=== PATIENT | male | born 1970 ===

== ENCOUNTER 2023-10-10 16:02 | Inpatient (IN) | payer OTHER ==
[~2023-10-10] VITALS: Ht 175.3 cm; Wt 92.0 kg
[2023-10-10 18:57] LABS: BASOPHILS % (AUTO) 1.5 % (0.0-2.0); EOSINOPHILS % (AUTO) 2.4 % (1.0-6.0); HEMATOCRIT 38.5 % (41-53); HEMOGLOBIN 12.7 g/dL (13.5-17.5); LYMPHOCYTES % (AUTO) 29.1 % (22.0-44.0); MEAN CORPUSCULAR HEMOGLOBIN 30.5 pg (26.0-34.0); MEAN CORPUSCULAR VOLUME 92 fL (80-100); MONOCYTES # (AUTO) 0.6 K/uL (0.1-1.0); MONOCYTES % (AUTO) 9.1 % (2.0-9.0); NEUTROPHILS % (AUTO) 57.9 % (40.0-70.0); PLATELET COUNT (AUTO) 189 K/uL (150-450); RED BLOOD CELL COUNT(AUTO) 4.17 MIL/uL (4.50-5.90); WHITE BLOOD COUNT (AUTO) 6.9 K/uL (4.5-11.0)
[2023-10-10 19:03] LABS: ANION GAP 2 mmol/L (8-16); CALCIUM, TOTAL 9.7 mg/dL (8.8-10.5); CARBON DIOXIDE 32 mmol/L (22-29); CHLORIDE 103 mmol/L (98-107); CREATININE 1.08 mg/dL (0.60-1.30); GLOMERULAR FILTR. RATE CALC > 60 mL/min (>60); GLUCOSE,RANDOM 117 mg/dL (70-110); POTASSIUM 4.1 mmol/L (3.5-5.1); SODIUM SERUM 137 mmol/L (136-145); UREA NITROGEN, BLOOD 22 mg/dL (7-18)
[2023-10-10 19:09] LABS: ALCOHOL, BLOOD (SERUM) < 3 mg/dL (0-10)
[2023-10-10] MEDS: HALOPERIDOL LACTATE 5 MG/ML VIAL IM ONE (19:50)
[2023-10-10] MEDS: LORazepam 2 MG/ML VIAL IM ONE (19:50)
[2023-10-10] MEDS: DiphenhydrAMINE HCL 50 MG/ML VIAL IM ONE (19:50)
[2023-10-10 21:45] VITALS: BP 126/71; PULSE 55; RESP 20; TEMP 97.4
[2023-10-11] MEDS ORDERED: ACET-2247 GT (03:21)
[2023-10-11] MEDS ORDERED: BISA10SU11 PR (03:33)
[2023-10-11] MEDS ORDERED: FERR220E10 GT (03:33)
[2023-10-11] MEDS ORDERED: HEPA500018 SQ (03:33)
[2023-10-11] MEDS ORDERED: GABA-1201 GT (03:33)
[2023-10-11] MEDS ORDERED: NA P133E4 PR (03:33)
[2023-10-11] MEDS ORDERED: ASPI325T87 GT (03:33)
[2023-10-11] MEDS ORDERED: ATOR40TA28 GT (03:33)
[2023-10-11] MEDS ORDERED: AMIO200T68 GT (03:33)
[2023-10-11] MEDS ORDERED: LACT1CAP70 GT (03:33)
[2023-10-11] MEDS ORDERED: LEVE500S33 GT (03:33)
[2023-10-11] MEDS ORDERED: LOPE-232 GT (03:34)
[2023-10-11] MEDS ORDERED: RISP-31 GT (03:40)
[2023-10-11] MEDS ORDERED: ONDA-104 GT (03:40)
[2023-10-11] MEDS ORDERED: LANS15TA13 GT (03:40)
[2023-10-11] MEDS ORDERED: AMIN30LI7 GT (03:40)
[2023-10-11] MEDS ORDERED: MELA5TAB40 GT (03:40)
[2023-10-11] MEDS ORDERED: MULT9LIQ7 GT (03:40)
[2023-10-11] MEDS ORDERED: METO50 GT (03:40)
[2023-10-11] MEDS ORDERED: SILV20CR11 TP (03:47)
[2023-10-11] MEDS ORDERED: TRAM50TA5 GT (03:47)
[2023-10-11] MEDS ORDERED: RIFAX550 GT (03:47)
[2023-10-11] MEDS ORDERED: TRAZ-257 GT (03:47)
[2023-10-11] MEDS ORDERED: SCOP1PAT12 TP (03:54)
[2023-10-11] MEDS ORDERED: IPRA4AER IH (03:54)
[2023-10-11] MEDS ORDERED: INSLAN SQ (03:54)
[2023-10-11 06:00] VITALS: BP 107/72; PULSE 60; RESP 18; TEMP 97.9
[2023-10-11 09:30] VITALS: BP 128/76; PULSE 64; RESP 20; TEMP 98
[2023-10-11] MEDS ORDERED: DEXTROSE 50%-WATER 25 GM/50 ML SYRINGE IVP PRN (10:00)
[2023-10-11 10:07] LABS: BASOPHILS % (AUTO) 0.4 % (0.0-2.0); EOSINOPHILS % (AUTO) 2.7 % (1.0-6.0); HEMATOCRIT 39.5 % (41-53); HEMOGLOBIN 13.1 g/dL (13.5-17.5); LYMPHOCYTES # (AUTO) 1.5 K/uL (1.0-4.8); LYMPHOCYTES % (AUTO) 24.8 % (22.0-44.0); MEAN CORPUSCULAR HEMOGLOBIN 30.3 pg (26.0-34.0); MEAN CORPUSCULAR HGB CONC 33.2 G/dL (31.0-37.0); MEAN CORPUSCULAR VOLUME 91 fL (80-100); MONOCYTES # (AUTO) 0.5 K/uL (0.1-1.0); MONOCYTES % (AUTO) 7.8 % (2.0-9.0); NEUTROPHILS # (AUTO) 3.9 K/uL (1.8-7.7); NEUTROPHILS % (AUTO) 64.3 % (40.0-70.0); PLATELET COUNT (AUTO) 222 K/uL (150-450); RED BLOOD CELL COUNT(AUTO) 4.32 MIL/uL (4.50-5.90); RED CELL DISTRIBUTION WIDTH 13.8 % (11.5-14.5); WHITE BLOOD COUNT (AUTO) 6.1 K/uL (4.5-11.0)
[2023-10-11 10:19] LABS: ANION GAP 9 mmol/L (8-16); CALCIUM, TOTAL 9.7 mg/dL (8.8-10.5); CARBON DIOXIDE 27 mmol/L (22-29); CHLORIDE 105 mmol/L (98-107); CREATININE 1.09 mg/dL (0.60-1.30); GLOMERULAR FILTR. RATE CALC > 60 mL/min (>60); GLUCOSE,RANDOM 96 mg/dL (70-110); POTASSIUM 4.1 mmol/L (3.5-5.1); SODIUM SERUM 141 mmol/L (136-145); UREA NITROGEN, BLOOD 23 mg/dL (7-18)
[2023-10-11] MEDS: INSULIN LISPRO 100 UNITS/ML SQ PRN (13:40)
[2023-10-11 15:01] LABS: GLUCOMETER DEV NAME(LOC) 6S.2; GLUCOSE,POINT OF CARE 93 MG/DL (70-110)
[2023-10-11] MEDS: VALPROIC ACID 250 MG/5 ML SOLUTION UDCUP PEG SCH (15:13)
[2023-10-11] MEDS: HEPARIN SODIUM,PORCINE 5,000 UNITS/ML VIAL SQ SCH (15:14)
[2023-10-11] MEDS: ALPRAZolam 0.5 MG TABLET PEG SCH (15:14)
[2023-10-11] MEDS: OLANZapine 5 MG TABLET PEG SCH (15:14)
[2023-10-11 16:12] VITALS: BP 139/94; PULSE 94; RESP 20; TEMP 98.7
[2023-10-11] MEDS: LORazepam 2 MG/ML VIAL IM PRN (16:43)
[2023-10-11 19:08] LABS: GLUCOMETER DEV NAME(LOC) 6N.2B; GLUCOSE,POINT OF CARE 124 MG/DL (70-110)
[2023-10-11 20:00] VITALS: BP 115/85; PULSE 87; RESP 18; TEMP 98.3
[2023-10-11] MEDS: MELATONIN 5 MG TABLET PEG SCH (21:07)
[2023-10-11] MEDS: TraZODone HCL 150 MG TABLET PEG SCH (21:07)
[2023-10-11] MEDS: TraMADol HCL 50 MG TABLET GT ONE (21:07)
[2023-10-12 01:20] LABS: COVID AG,FIA SOURCE NASAL SWAB
[2023-10-12 01:45] LABS: GLUCOMETER DEV NAME(LOC) 6N.2B; GLUCOSE,POINT OF CARE 101 MG/DL (70-110)
[2023-10-12 01:48] LABS: SARS-COV2 (COVID) ANTIGEN,FIA Negative (Negative)
[2023-10-12 05:00] VITALS: BP 144/72; PULSE 86; RESP 20; TEMP 97.9
[2023-10-12 06:10] LABS: GLUCOMETER DEV NAME(LOC) 6N.2B; GLUCOSE,POINT OF CARE 139 MG/DL (70-110)
[2023-10-12 09:45] VITALS: BP 131/89; PULSE 84; RESP 18; TEMP 98.3
[2023-10-12] MEDS: ASPIRIN 81 MG CHEWABLE TABLET PEG SCH (09:54)
[2023-10-12] MEDS: ATORVASTATIN CALCIUM 20 MG TABLET PEG SCH (09:55)
[2023-10-12 15:00] VITALS: BP 148/98; PULSE 87; RESP 20; TEMP 98.2
[2023-10-12 17:23] LABS: AMPHET/METH SCREEN,URINE NEGATIVE (NEGATIVE); BARBITURATE SCREEN, URINE NEGATIVE (NEGATIVE); BENZODIAZEPINES SCREEN,URINE NEGATIVE (NEGATIVE); CANNABINOID SCREEN,URINE NEGATIVE (NEGATIVE); COCAINE SCREEN,URINE NEGATIVE (NEGATIVE); METHADONE SCREEN, URINE NEGATIVE (NEGATIVE); OPIATE SCREEN,URINE NEGATIVE (NEGATIVE); PHENCYCLIDINE SCREEN,URINE NEGATIVE (NEGATIVE)
[2023-10-12 17:25] LABS: ALCOHOL, URINE DRUG SCREEN NEGATIVE (NEGATIVE)
[2023-10-12 20:00] VITALS: BP 135/97; PULSE 91; RESP 20; TEMP 98.1
[2023-10-12] MEDS: TraMADol HCL 50 MG TABLET PEG PRN (20:37)
[2023-10-12 21:45] LABS: GLUCOMETER DEV NAME(LOC) 6S.2; GLUCOSE,POINT OF CARE 127 MG/DL (70-110)
[2023-10-12 21:46] LABS: GLUCOMETER DEV NAME(LOC) 6S.2; GLUCOSE,POINT OF CARE 116 MG/DL (70-110)
[2023-10-12 23:55] LABS: GLUCOMETER DEV NAME(LOC) 4E.2; GLUCOSE,POINT OF CARE 144 MG/DL (70-110)
[2023-10-13 05:30] VITALS: BP 113/70; PULSE 68; RESP 18; TEMP 98
[2023-10-13 08:01] LABS: GLUCOMETER DEV NAME(LOC) 6N.2B; GLUCOSE,POINT OF CARE 117 MG/DL (70-110)
[2023-10-13 11:17] VITALS: BP 102/72; PULSE 63; RESP 18; TEMP 98.3
[2023-10-13 15:32] VITALS: BP 108/80; PULSE 70; RESP 18; TEMP 98.1
[2023-10-13 19:57] VITALS: BP 109/79; PULSE 68; RESP 18; TEMP 98.1
[2023-10-13 20:01] LABS: GLUCOMETER DEV NAME(LOC) 6S.2; GLUCOSE,POINT OF CARE 117 MG/DL (70-110)
[2023-10-13 21:01] LABS: GLUCOMETER DEV NAME(LOC) 6N.2B; GLUCOSE,POINT OF CARE 126 MG/DL (70-110)
[2023-10-14 04:48] VITALS: BP 108/76; PULSE 60; RESP 18; TEMP 98.1
[2023-10-14 05:26] LABS: GLUCOMETER DEV NAME(LOC) 6S.2; GLUCOSE,POINT OF CARE 112 MG/DL (70-110)
[2023-10-14 06:56] LABS: GLUCOMETER DEV NAME(LOC) 4E.2; GLUCOSE,POINT OF CARE 123 MG/DL (70-110)
[2023-10-14 08:10] VITALS: BP 113/71; PULSE 75; RESP 18; TEMP 97.9
[2023-10-14 12:46] LABS: GLUCOMETER DEV NAME(LOC) 6N.2B; GLUCOSE,POINT OF CARE 141 MG/DL (70-110)
[2023-10-14 16:11] VITALS: BP 105/64; PULSE 81; RESP 18; TEMP 96.5
[2023-10-14 19:29] VITALS: BP 118/76; PULSE 79; RESP 18; TEMP 98.3
[2023-10-14 20:11] LABS: GLUCOMETER DEV NAME(LOC) 6N.2B; GLUCOSE,POINT OF CARE 125 MG/DL (70-110)
[2023-10-14] MEDS: ZOLPIDEM TARTRATE 5 MG TABLET PEG PRN (23:35)
[2023-10-15 04:00] VITALS: BP 114/77; PULSE 68; RESP 18; TEMP 98.2
[2023-10-15 05:40] LABS: GLUCOMETER DEV NAME(LOC) 6N.2B; GLUCOSE,POINT OF CARE 121 MG/DL (70-110)
[2023-10-15 07:35] VITALS: BP 118/72; PULSE 78; RESP 19; TEMP 98.2
[2023-10-15 10:16] LABS: GLUCOMETER DEV NAME(LOC) 4E.2; GLUCOSE,POINT OF CARE 101 MG/DL (70-110)
[2023-10-15 12:01] LABS: GLUCOMETER DEV NAME(LOC) 6N.2B; GLUCOSE,POINT OF CARE 120 MG/DL (70-110)
[2023-10-15] MEDS ORDERED: ALPR-707 PO (13:13)
[2023-10-15] MEDS ORDERED: ASPI-1450 GT (13:14)
[2023-10-15] MEDS ORDERED: ATOR20TA65 GT (13:14)
[2023-10-15] MEDS ORDERED: MELA1TAB73 GT (13:15)
[2023-10-15] MEDS ORDERED: OLAN5TAB52 GT (13:16)
[2023-10-15] MEDS ORDERED: TRAZ150T80 GT (13:17)
[2023-10-15] MEDS ORDERED: VALP250C48 GT (13:17)
[2023-10-15] MEDS ORDERED: TRAM50TA5 GT (13:18)
[2023-10-15] MEDS ORDERED: INSU100V SQ (13:19)
[2023-10-15 15:13] VITALS: BP 122/74; PULSE 82; RESP 18; TEMP 98.4
[2023-10-15 17:21] LABS: GLUCOMETER DEV NAME(LOC) 6N.2B; GLUCOSE,POINT OF CARE 130 MG/DL (70-110)
== END 2023-10-15 17:25 | DRG 861 ==
LOC: EMS 16:02 → EDH 20:39 → 6N 21:45
PROVIDERS: ADMIT Internal Medicine; ATTEND Internal Medicine
DX: R41.82 Altered mental status, unspecified (principal); E11.22 Type 2 diabetes mellitus with diabetic chronic kidney disease; F25.0 Schizoaffective disorder, bipolar type; I69.354 Hemiplegia and hemiparesis following cerebral infarction affecting left non-dominant side; I12.9 Hypertensive chronic kidney disease with stage 1 through stage 4 chronic kidney disease, or unspecified chronic kidney disease; D64.9 Anemia, unspecified; S41.101A Unspecified open wound of right upper arm, initial encounter; N18.9 Chronic kidney disease, unspecified; K76.9 Liver disease, unspecified; Z20.822 Contact with and (suspected) exposure to COVID-19; X58.XXXA Exposure to other specified factors, initial encounter; Y93.89 Activity, other specified; Y92.89 Other specified places as the place of occurrence of the external cause; I69.391 Dysphagia following cerebral infarction; Z93.1 Gastrostomy status; Z79.899 Other long term (current) drug therapy; Z91.148 Patient's other noncompliance with medication regimen for other reason; Z79.82 Long term (current) use of aspirin; Z79.4 Long term (current) use of insulin; Z74.01 Bed confinement status; Y99.8 Other external cause status
CPT/HCPCS: 80048; 80307; 82962; 83735; 85025; 87081; 87481; 97110; 97162; 97165; 97530; 99291; G0480; J1200; J1630; J1644; J2060; Q9967